=== PATIENT | male | born 1935 | race Caucasian/White ===

== ENCOUNTER 2017-04-27 19:39 | Emergency (ER) | payer OTHER ==
[~2017-04-27] VITALS: Ht 180.3 cm; Wt 63.5 kg
[~2017-04-27 19:39] MED LIST: HYDROCODONE-APA1 TA1 PO; MIRALAX17 GM PO; OMEPRAZOLE 20 M20 M1 PO
== END 2017-04-27 22:10 | disposition short-term general hospital (02) ==
LOC: ER 19:39
DX: S06.6X0A Traumatic subarachnoid hemorrhage without loss of consciousness, initial encounter (principal); S50.312A Abrasion of left elbow, initial encounter; S80.212A Abrasion, left knee, initial encounter; S00.212A Abrasion of left eyelid and periocular area, initial encounter; Z98.890 Other specified postprocedural states; Z85.46 Personal history of malignant neoplasm of prostate; Z86.19 Personal history of other infectious and parasitic diseases; W01.198A Fall on same level from slipping, tripping and stumbling with subsequent striking against other object, initial encounter; Y93.89 Activity, other specified; Y92.89 Other specified places as the place of occurrence of the external cause; Y99.8 Other external cause status